=== PATIENT | male | born 1975 | race Caucasian/White ===

== ENCOUNTER 2017-01-29 16:49 | Emergency (ER) | payer MEDICARE, OTHER ==
[~2017-01-29 16:49] MED LIST: CYMBALTA20 MG PO; ELAVIL25 MG PO; LASIX40 MG PO; LEVEMIR100 UNIT/1 SQ; NEURONTIN600 MG PO; NICODERM 14MG PA1 EA TD; NOVOLOG100 UNIT/2 SQ; SUBOXONE 8 MG-1 EACH SL
[2017-01-29 17:45] LABS: BASO % 0.2 % (0.2-1.2); EOS # 0.4 10_X3_uL (0.0-0.5); EOS % 3.6 % (0.8-7.0); GRAN # 7.5 10_X3_uL (1.8-5.4); GRAN % 71.8 % (34.0-67.9); HEMATOCRIT 41.5 % (40-51); HEMOGLOBIN 13.3 g/dL (13.7-17.5); LYMPH # 1.9 10_X3_uL (1.3-3.6); LYMPH % 17.8 % (21.8-53.1); MEAN CORPUSCULAR HEMOGLOBIN 30.4 pg (27.0-33.0); MEAN PLATELET VOLUME 10.2 fl (7.5-11.5); MONO # 0.7 10_X3_uL (0.3-0.8); MONO % 6.6 % (5.3-12.2); PLATELET COUNT 144 x10_3/uL (163-337); RED BLOOD COUNT 4.37 x10_6/uL (4.6-6.1); RED CELL DISTRIBUTION WIDTH 15.3 % (11.6-14.4); WHITE BLOOD COUNT 10.4 x10_3/uL (4.2-9.1)
== END 2017-01-29 18:05 | disposition home or self-care (01) ==
LOC: ER 16:49
PROVIDERS: Internal Medicine
DX: S81.812A Laceration without foreign body, left lower leg, initial encounter (principal); W22.8XXA Striking against or struck by other objects, initial encounter; Y92.007 Garden or yard of unspecified non-institutional (private) residence as the place of occurrence of the external cause; Z88.2 Allergy status to sulfonamides; Z88.1 Allergy status to other antibiotic agents; Z79.899 Other long term (current) drug therapy
CPT/HCPCS: 36415; 85025; 90715; 99070; 99283